=== PATIENT | female | born 1955 | race Caucasian/White ===

== ENCOUNTER 2017-12-13 14:52 | Outpatient (CLI) | payer OTHER, SELFPAY | END 2017-12-13 14:53 | disposition home or self-care (01) | LOC: BICMAMMO 14:52 | PROVIDERS: ATTEND Obstetrics & Gynecology | DX: Z12.31 Encounter for screening mammogram for malignant neoplasm of breast (principal) | CPT/HCPCS: 71046; 77063; 77067 ==

== ENCOUNTER 2019-01-30 14:37 | Outpatient (CLI) | payer OTHER ==
--- NOTE | 2019-01-30 15:35 | BD ---
DEXA BONE DENSITY STUDY: HISTORY: Osteoporosis screening. COMPARISON: 08/28/2016. FINDINGS: Lumbar Spine: BMD (g/cm2) L1 0.639 T-Score: -3.2 L2 0.732 T-Score: -2.7 L3 0.843 T-Score: -2.2 L4 0.790 T-Score: -2.5 L1-L4 0.756 T-Score: -2.6 Evidence for osteoporosis with high risk for fracture. Femoral Neck: 0.545 T-Score: -2.7 Total Femur: 0.738 T-Score: -1.7 Evidence for osteoporosis with high risk for fracture. Stable appearance from 08/28/2016. POS: [facility]
== END 2019-01-30 14:38 | disposition home or self-care (01) ==
LOC: BICMAMMO 14:37
PROVIDERS: ATTEND Obstetrics & Gynecology
DX: M81.0 Age-related osteoporosis without current pathological fracture (principal)
CPT/HCPCS: 77080

== ENCOUNTER 2020-04-10 14:00 | Outpatient (CLI) | payer OTHER ==
--- NOTE | 2020-04-10 14:16 | RAD ---
EXAM: CHEST TWO VIEWS 04/10/2020 2:13 PM HISTORY: Melanoma COMPARISON: December 13, 2017 FINDINGS: Lungs: No acute airspace consolidation. Calcified granuloma the right lower lobe is stable. No suspi cious pulmonary nodule or airspace opacity is evident. Heart: Normal in size and contour. Pulmonary Vessels: Normal. Costophrenic Angles: Clear. Pneumothorax: None. Osseous Structures: Stable levoscoliosis of the thoracic spine. Additional Findings: None. IMPRESSION: No significant acute intrathoracic disease.
== END 2020-04-10 14:01 | disposition home or self-care (01) ==
LOC: BICRAD 14:00
DX: C43.9 Malignant melanoma of skin, unspecified (principal)
CPT/HCPCS: 71046

== ENCOUNTER 2022-10-26 08:41 | Outpatient (CLI) | payer MEDICARE, OTHER | END 2022-10-26 08:42 | disposition home or self-care (01) | LOC: NM 08:41 | PROVIDERS: ATTEND Family Medicine | DX: E83.52 Hypercalcemia (principal); E07.89 Other specified disorders of thyroid | CPT/HCPCS: 78072; A9500 ==

== ENCOUNTER 2025-07-12 13:15 | Outpatient (CLI) | payer MEDICARE, OTHER | END 2025-07-12 13:16 | disposition home or self-care (01) | LOC: BICMAMMO 13:15 | PROVIDERS: ATTEND Internal Medicine Endocrinology, Diabetes & Metabolism | DX: M81.0 Age-related osteoporosis without current pathological fracture (principal) | CPT/HCPCS: 77080 ==